=== PATIENT | male | born 1950 | race Caucasian/White ===

== ENCOUNTER 2020-03-16 14:34 | Emergency (ER) | payer OTHER ==
[~2020-03-16] VITALS: Ht 167.6 cm; Wt 131.1 kg
[2020-03-16] MEDS ORDERED: ATOR20 PO (14:58)
[2020-03-16] MEDS ORDERED: AMLO5 PO (14:58)
[2020-03-16] MEDS ORDERED: FINA5 PO (14:59)
[2020-03-16] MEDS ORDERED: FOLI1 PO (14:59)
[2020-03-16] MEDS ORDERED: GABA300 PO (14:59)
[2020-03-16] MEDS ORDERED: JARDIANCE25 MG PO (14:59)
[2020-03-16] MEDS ORDERED: GLIP5 PO (15:00)
[2020-03-16] MEDS ORDERED: BASAGLAR K100 UNIT/1 (15:00)
[2020-03-16] MEDS ORDERED: METHOTREXATE INJ (15:01)
[2020-03-16] MEDS ORDERED: METTREX2.5 (15:01)
[2020-03-16] MEDS ORDERED: TAMS.4ER PO (15:01)
[2020-03-16] MEDS ORDERED: METF500 PO (15:01)
[2020-03-16 15:09] LABS: BASOPHILS ABSOLUTE AUTO 0.02 K/mm3 (0.00-0.23); BASOPHILS PERCENT AUTO 0 % (0-2); EOSINOPHILS ABSOLUTE AUTO 0.05 K/mm3 (0.00-0.68); EOSINOPHILS PERCENT AUTO 1 % (0-6); Hematocrit 46.1 % (37.0-53.0); Hemoglobin 15.2 g/dL (13.5-17.5); IMMATURE GRAN ABSOLUTE AUTO 0.02 K/mm3 (0.00-0.10); IMMATURE GRAN PERCENT AUTO 0 % (0-1); LYMPHOCYTES ABSOLUTE AUTO 1.53 K/mm3 (0.84-5.20); LYMPHOCYTES PERCENT AUTO 30 % (21-46); MONOCYTES ABSOLUTE AUTO 0.61 K/mm3 (0.16-1.47); MONOCYTES PERCENT AUTO 12 % (4-13); Mean Corpuscular Volume 97 fL (80-100); Mean Platelet Volume 9.6 fL (9.1-12.4); NEUTROPHILS ABSOLUTE AUTO 2.85 K/mm3 (1.96-9.15); NEUTROPHILS PERCENT AUTO 56 % (41-73); Platelet Count 188 K/mm3 (150-400); RDW Coefficient Variation 13.1 % (11.7-14.2); RDW Standard Deviation 46.5 fL (35.1-46.3); Red Blood Cell Count 4.75 M/mm3 (4.30-5.90); White Blood Cell Count 5.08 K/mm3 (4.00-11.30)
[2020-03-16 15:15] LABS: Alanine Aminotransfer (ALT/SGP 26 U/L (12-78); Albumin, Blood 3.6 g/dL (3.4-5.0); Albumin/Globulin Ratio 1.1 (0.8-1.8); Alk Phos 74 U/L (50-136); Anion Gap 6 mmol/L (6-16); Aspartate Aminotrans (AST/SGOT 13 U/L (12-37); Bilirubin, Total 0.4 mg/dL (0.1-1.0); Blood Urea Nitrogen 22 mg/dL (8-24); Bun/Creatinine Ratio 32.5 (12.0-20.0); CO2, Blood 27 mmol/L (21-32); Calcium, Blood 8.7 mg/dL (8.5-10.1); Chloride, Blood 104 mmol/L (98-108); Creatinine, Blood 0.68 mg/dL (0.60-1.20); Globulin, Blood 3.3 g/dL (2.2-4.0); Glomerular Filtration Rate >60 (60-); Glucose, Blood 236 mg/dL (70-99); Potassium, Blood 4.1 mmol/L (3.5-5.5); Sodium, Blood 137 mmol/L (136-145); Total Protein, Blood 6.9 g/dL (6.4-8.2); Troponin I <0.015 ng/mL (0.000-0.040)
== END 2020-03-16 17:07 | disposition home or self-care (01) ==
LOC: ER 14:34
PROVIDERS: Emergency Medicine
DX: I16.0 Hypertensive urgency (principal); R60.0 Localized edema; E11.42 Type 2 diabetes mellitus with diabetic polyneuropathy; I10 Essential (primary) hypertension; F32.9 Major depressive disorder, single episode, unspecified; Z79.899 Other long term (current) drug therapy; Z79.4 Long term (current) use of insulin
CPT/HCPCS: 71045; 80053; 83880; 84484; 85025; 93005; 93010; 99285-25; U0003

== ENCOUNTER 2021-01-13 11:56 | Emergency (ER) | payer OTHER ==
[~2021-01-13] VITALS: Ht 167.6 cm; Wt 131.5 kg
[~2021-01-13 11:56] MED LIST: AMLO5 PO; ATOR20 PO; BASAGLAR K100 UNIT/1; FINA5 PO; FOLI1 PO; GABA300 PO; GLIP5 PO; JARDIANCE25 MG PO; METF500 PO; METHOTREXATE INJ; METTREX2.5; TAMS.4ER PO
[2021-01-13] MEDS ORDERED: SULTRIDS PO (15:29)
[2021-01-13] MEDS ORDERED: CEPH500 PO (15:29)
== END 2021-01-13 15:37 | disposition home or self-care (01) ==
LOC: ER 11:56
DX: L03.311 Cellulitis of abdominal wall (principal); E11.42 Type 2 diabetes mellitus with diabetic polyneuropathy; E78.00 Pure hypercholesterolemia, unspecified; Z79.4 Long term (current) use of insulin; Z79.899 Other long term (current) drug therapy
CPT/HCPCS: 76857; 99284-25; A9270

== ENCOUNTER 2023-08-20 09:51 | Inpatient (IN) | payer OTHER ==
[~2023-08-20] VITALS: Ht 167.6 cm; Wt 124.8 kg
[~2023-08-20 09:51] MED LIST changes: -AMLO5 PO; -BASAGLAR K100 UNIT/1; +BASAGLAR K100 UNIT/1 SC; +CEPH500 PO; +NORVASC10 MG PO; +SULTRIDS PO
[2023-08-20 10:32] LABS: BASOPHILS ABSOLUTE AUTO 0.01 K/mm3 (0.00-0.23); BASOPHILS PERCENT AUTO 0 % (0-2); EOSINOPHILS ABSOLUTE AUTO 0.04 K/mm3 (0.00-0.68); EOSINOPHILS PERCENT AUTO 1 % (0-6); Hemoglobin 12.4 g/dL (13.5-17.5); IMMATURE GRAN ABSOLUTE AUTO 0.04 K/mm3 (0.00-0.10); IMMATURE GRAN PERCENT AUTO 1 % (0-1); LYMPHOCYTES ABSOLUTE AUTO 0.88 K/mm3 (0.84-5.20); LYMPHOCYTES PERCENT AUTO 11 % (21-46); MONOCYTES ABSOLUTE AUTO 0.67 K/mm3 (0.16-1.47); MONOCYTES PERCENT AUTO 8 % (4-13); Mean Corpuscular HGB 30.5 pg (26.0-34.0); Mean Corpuscular HGB Conc 33.5 g/dL (31.5-36.5); Mean Corpuscular Volume 91 fL (80-100); Mean Platelet Volume 9.3 fL (9.1-12.4); NEUTROPHILS ABSOLUTE AUTO 6.63 K/mm3 (1.96-9.15); NEUTROPHILS PERCENT AUTO 80 % (41-73); Platelet Count 225 K/mm3 (150-400); RDW Coefficient Variation 14.6 % (11.7-14.2); RDW Standard Deviation 49.3 fL (35.1-46.3); Red Blood Cell Count 4.07 M/mm3 (4.30-5.90); White Blood Cell Count 8.27 K/mm3 (4.00-11.30)
[2023-08-20 10:47] LABS: Albumin, Blood 3.3 g/dL (3.4-5.0); Albumin/Globulin Ratio 0.8 (0.8-1.8); Bilirubin, Total 0.5 mg/dL (0.1-1.0); Bun/Creatinine Ratio 51.5 (12.0-20.0); Calcium, Blood 8.6 mg/dL (8.5-10.1); Creatinine, Blood 2.31 mg/dL (0.60-1.20); Globulin, Blood 4.2 g/dL (2.2-4.0); Total Protein, Blood 7.5 g/dL (6.4-8.2)
[2023-08-20 10:53] LABS: Source, Urine Straight Cath
[2023-08-20 11:02] LABS: Appearance, Urine Clear (Clear); Bilirubin, Urine Neg (Neg); Blood, Urine Neg (Neg); Color, Urine Yellow (P-Yellow); Glucose Qualitative, Urine 3+ (Neg); Ketones, Urine Neg (Neg); Leukocyte Esterase, Urine Neg (Neg); Nitrite, Urine Neg (Neg); Protein, Urine Neg (Neg); Urobilinogen, Urine NORM (Normal)
[2023-08-20 16:49] VITALS: BP 123/58
--- NOTE | 2023-08-20 19:20 | NUR ---
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 [facility]. REPORT GIVEN TO CUT IN STATION OPERATOR NURSE WHO ASSUMES CARE AT THIS TIME. BED IN LOW POSITION, CALL LIGHT WITHIN REACH.
[2023-08-20 19:36] VITALS: BP 101/48
[2023-08-21 02:15] VITALS: BP 106/57
[2023-08-21 04:57] LABS: BASOPHILS ABSOLUTE AUTO 0.01 K/mm3 (0.00-0.23); BASOPHILS PERCENT AUTO 0 % (0-2); EOSINOPHILS ABSOLUTE AUTO 0.06 K/mm3 (0.00-0.68); EOSINOPHILS PERCENT AUTO 1 % (0-6); Hematocrit 33.9 % (37.0-53.0); Hemoglobin 11.4 g/dL (13.5-17.5); IMMATURE GRAN ABSOLUTE AUTO 0.03 K/mm3 (0.00-0.10); IMMATURE GRAN PERCENT AUTO 1 % (0-1); LYMPHOCYTES ABSOLUTE AUTO 0.75 K/mm3 (0.84-5.20); LYMPHOCYTES PERCENT AUTO 12 % (21-46); MONOCYTES ABSOLUTE AUTO 0.55 K/mm3 (0.16-1.47); MONOCYTES PERCENT AUTO 9 % (4-13); Mean Corpuscular HGB 30.5 pg (26.0-34.0); Mean Corpuscular HGB Conc 33.6 g/dL (31.5-36.5); Mean Corpuscular Volume 91 fL (80-100); Mean Platelet Volume 8.9 fL (9.1-12.4); NEUTROPHILS ABSOLUTE AUTO 4.65 K/mm3 (1.96-9.15); NEUTROPHILS PERCENT AUTO 77 % (41-73); Platelet Count 180 K/mm3 (150-400); RDW Coefficient Variation 14.5 % (11.7-14.2); RDW Standard Deviation 48.3 fL (35.1-46.3); Red Blood Cell Count 3.74 M/mm3 (4.30-5.90); White Blood Cell Count 6.05 K/mm3 (4.00-11.30)
[2023-08-21 05:26] LABS: Anion Gap 10 mmol/L (6-16); Blood Urea Nitrogen 97 mg/dL (8-24); Bun/Creatinine Ratio 76.4 (12.0-20.0); CO2, Blood 21 mmol/L (21-32); Calcium, Blood 8.3 mg/dL (8.5-10.1); Chloride, Blood 108 mmol/L (98-108); Creatinine, Blood 1.27 mg/dL (0.60-1.20); Glomerular Filtration Rate 60 (60-); Glucose, Blood 147 mg/dL (70-99); Potassium, Blood 3.7 mmol/L (3.5-5.5); Sodium, Blood 139 mmol/L (136-145)
--- NOTE | 2023-08-21 06:14 | NUR ---
NOC SHIFT SUMMARY: PT IS [facility]. NEED TO CONTACT [facility] FOR MED REC. A&O X4. TELE. LIVES ALONE. DIABETIC. CAME IN FOR WEAKNESS AND DIZZINESS. BLOOD SUGARS AC&HS.
[2023-08-21 07:28] VITALS: BP 101/39
[2023-08-21 07:40] VITALS: BP 130/65
[2023-08-21] MEDS ORDERED: FURO20 PO (10:22)
[2023-08-21] MEDS ORDERED: CHLO25B PO (10:28)
[2023-08-21] MEDS ORDERED: COSENTYX P150 MG/1 M SC (11:07)
[2023-08-21] MEDS ORDERED: LISI20 PO (11:08)
[2023-08-21] MEDS ORDERED: NOVOLOG100 UNIT/3 SC (11:08)
[2023-08-21] MEDS ORDERED: RISP2 PO (11:13)
[2023-08-21] MEDS ORDERED: DOXY100 PO (11:13)
[2023-08-21] MEDS ORDERED: Flonase 0.05% N16 GM (11:15)
[2023-08-21] MEDS ORDERED: ALOGLIPTIN25 M1 PO (11:16)
[2023-08-21] MEDS ORDERED: SERT100 PO (11:17)
[2023-08-21] MEDS ORDERED: ARTIFICIAL TEA1 EAC1 BOTHEYES (11:19)
[2023-08-21] MEDS ORDERED: THERA-D2000 UNIT PO (11:20)
[2023-08-21] MEDS ORDERED: OXYM.05NI (11:24)
[2023-08-21] MEDS ORDERED: HYDROCHLOROTH12.5 MG PO (11:24)
--- NOTE | 2023-08-21 11:28 | NUR ---
PT MEDICATION LIST RECEIVED VIA FAX FROM [facility]. MEDICATION LIST RECONCILED.
--- NOTE | 2023-08-21 11:30 | NUR ---
MD CALL DR PARNELL NOTIFIED OF UPDATED MEDICATION REC.
[2023-08-21 11:51] LABS: Percent Saturation 25.6 % (20.0-50.0)
--- NOTE | 2023-08-21 11:55 | NUR ---
Pt. is awake and sitting up in a chair when he welcomes my visit. Pt. is pleasant, but does display evidence of spiritual anxiety. Listen with empathy and a calming presence. Facilitate more of a life review. Pt. displays evidnee of trust and confidence in this environmental engineer. Ask guided questions regarding the Pts. fears. Considered matters of irena and the spiritual world. Shared words of hope. power and insipration. Prayed with the Pt. in the "poer of [place] Name." Pt. verbalized gratitude for the spiritual care visit.
[2023-08-21 16:39] VITALS: BP 101/61
--- NOTE | 2023-08-21 18:04 | NUR ---
SHIFT SUMMARY MR ASHBY WAS ABLE TO ANSWER ORIENTATION QUESTIONS X4, BUT HE HAS RAMBLING CONVERSATION, PLEASANT AND CALMLY SAYING THAT HE IS POSSESSED AND SEES BLUE DEMONS IN HIS ROOM AND FLIES UNDER HIS EYELIDS. HE SAID THAT HE FEELS VERY WEAK. HE HAS BEEN SITTING UP IN THE CHAIR FOR MOST OF THE SHIFT. CHAIR AND BED ALARMS IN USE. ON TELEMETRY, SR/SB NO CALLS FROM CHILD STUDY TEAM DIRECTOR. STILL ON CLEAR LIQUID DIET, NO NAUSEA, NOT C/O ABDOMINAL PAIN AFTER DRINKING MEAL TRAY.
[2023-08-21 19:29] VITALS: BP 115/49
[2023-08-22 01:55] VITALS: BP 114/56
[2023-08-22 05:10] LABS: Hematocrit 34.2 % (37.0-53.0); Hemoglobin 11.1 g/dL (13.5-17.5)
[2023-08-22 05:44] LABS: Anion Gap 6 mmol/L (6-16); Blood Urea Nitrogen 69 mg/dL (8-24); Bun/Creatinine Ratio 68.3 (12.0-20.0); CO2, Blood 23 mmol/L (21-32); Calcium, Blood 8.7 mg/dL (8.5-10.1); Chloride, Blood 111 mmol/L (98-108); Creatinine, Blood 1.01 mg/dL (0.60-1.20); Glomerular Filtration Rate 79 (60-); Glucose, Blood 205 mg/dL (70-99); Phosphorus, Blood 3.7 mg/dL (2.5-4.9); Potassium, Blood 3.6 mmol/L (3.5-5.5); Sodium, Blood 140 mmol/L (136-145)
[2023-08-22 07:28] VITALS: BP 112/58
--- NOTE | 2023-08-22 09:50 | NUR ---
MD ORDER PLACED FOR ADA DIET AND STOP NS IVF, VERBAL ORDER FROM DR GENAO. ORDER INTO [employer].
--- NOTE | 2023-08-22 15:05 | NUR ---
SHIFT SUMMARY MR ASHBY HAS BEEN STANDING AND TRANSFERING WITH 1 PERSON ASSISTANCE, SEEMS TO BE GETTING STRONGER ON THE TRANSFER TODAY. UP TO CHAIR AND BEDSIDE COMMODE WITH WALKER AND GAIT BELT. HE HAS BEEN CONTINENT OF URINE TODAY, UP TO BSC. NO C/O PAIN EXCPT ON LOWER ABDOMINAL PALPATION. BED LOW, BED AND CHAIR ALARMS IN USE AND CALL LIGHT IN REACH.
[2023-08-22 15:07] VITALS: BP 113/64
[2023-08-22 19:52] VITALS: BP 140/60
[2023-08-22] MEDS ORDERED: MUPIROCIN1 G1 TOP (23:39)
[2023-08-22] MEDS ORDERED: MICONAZOLE TOP (23:42)
[2023-08-22] MEDS ORDERED: KETO15TC TOP (23:44)
[2023-08-22] MEDS ORDERED: NAPR500 PO (23:45)
[2023-08-23 01:45] VITALS: BP 112/57
--- NOTE | 2023-08-23 05:09 | NUR ---
SHIFT SUMMARY 73 YR M ADMITTED ON 08/20/23 FOR [facility]. FULL CODE. NO ACUTE CHANGES THIS SHIFT. PT AMBULATED TO THE BATHROOM W/ A FWW AND STAND BY ASSISTANCE. HE WAS UP IN THE CHAIR FOR A FEW HOURS WELL. HE HAS C/O PAIN AT HIS IV SITE IN THE RIGHT AC BUT STATES THE PAIN IS TOLERABLE AND DOES NOT WANT HIS IV PULLED IF IT MEANS HE HAS TO GET ANOTHER. HE IS PLEASANT AND COOPERATIVE WITH CARE.
[2023-08-23 07:23] VITALS: BP 117/79
--- NOTE | 2023-08-23 14:59 | NUR ---
SHIT SUMMARY MR ASHBY IS GETTING STRONGER - ABLE TO STAND AND WALK INTO THE BATHROOM AND SIT ON THE TOILET WITH GAIT BELT/WALKER AND VERBAL CUES. HE SHOWERED TODAY. ACCUCHECK BEFORE LUNCH WAS 315, COVERED WITH SS INSULIN. HE HAS NOT HAD ANY SNACKS TODAY. NO C/O PAIN OR SOB. HE IS ORIENTATED TO QUESTIONS WITH SOME RAMBLING BUT PLEASANT CONVERSATION. BED AND CHAIR ALARMS IN USE, CALL LIGHT IN REACH. CALLING APPROPIATELY AND NOT GETTING UP WITHOUT STAFF PRESENCE.
[2023-08-23 15:23] VITALS: BP 119/54
[2023-08-23 19:41] VITALS: BP 131/67
[2023-08-24 03:20] VITALS: BP 150/69
[2023-08-24 05:14] LABS: Calcium, Blood 9.2 mg/dL (8.5-10.1); Creatinine, Blood 0.94 mg/dL (0.60-1.20); Potassium, Blood 3.6 mmol/L (3.5-5.5)
[2023-08-24 07:44] VITALS: BP 123/57
[2023-08-24 11:50] LABS: SARS-Cov-2 (COVID-19) PCR, MMC NEGATIVE (NEGATIVE)
[2023-08-24] MEDS ORDERED: HUMALOG KW100 UNIT/1 (17:11)
--- NOTE | 2023-08-24 18:43 | NUR ---
DISCHARGE: PT D/C @1835 VIA WHEELCHAIR WITH [facility]. NO IV ACCESS. PT RECEIVED DINNER AND INSULIN PRIOR TO D/C. PT WORKED WITH PT/OT THIS SHIFT. HAS BEEN MOSTLY INDEPENDENT IN ROOM. REPORT GIVEN TO [facility] @[id number]. MEDICALLY FLOOR NUMBER GIVEN TO NURSE @[facility].
[2023-08-26 03:11] LABS: CK-BB 0 % (0); CK-MB 0 % (0-3); CK-MM 100 % (97-100); MACRO TYPE 1 0 % (Not Observed); MACRO TYPE 2 0 % (Not Observed)
== END 2023-08-24 18:36 | DRG 683 ==
LOC: ER 09:51 → MEDS 14:43
PROVIDERS: Emergency Medicine; Internal Medicine; ADMIT Internal Medicine
DX: N17.9 Acute kidney failure, unspecified (principal); E87.1 Hypo-osmolality and hyponatremia; Z68.41 Body mass index [BMI] 40.0-44.9, adult; E66.01 Morbid (severe) obesity due to excess calories; E11.9 Type 2 diabetes mellitus without complications; I10 Essential (primary) hypertension; F43.10 Post-traumatic stress disorder, unspecified; F32.A Depression, unspecified; D64.9 Anemia, unspecified; F29 Unspecified psychosis not due to a substance or known physiological condition; N40.0 Benign prostatic hyperplasia without lower urinary tract symptoms; E86.0 Dehydration; Z88.0 Allergy status to penicillin; Z87.891 Personal history of nicotine dependence; Z79.4 Long term (current) use of insulin; Z60.2 Problems related to living alone; Z91.81 History of falling
CPT/HCPCS: 36415; 51701; 74176; 80048; 80053; 80069; 81003; 82550; 82552; 82728; 82947; 83540; 83550; 83605; 83690; 84443; 84484; 85014; 85018; 85025; 93005; 93010; 96360-59; 97110; 97116; 97162; 97167; 97530; 97535; 99285-25; A9270; J1650; J7030; U0002